=== PATIENT | female | born 1950 | race Asian ===

== ENCOUNTER 2016-08-01 21:14 | Inpatient (IN) | payer MEDICAID, OTHER ==
[~2016-08-01] VITALS: Ht 154.9 cm; Wt 40.2 kg
[~2016-08-01 21:14] MED LIST: ETHA400 PO; ISON100 PO; PYRA500T13 PO; RIFA150 PO
[2016-08-01] MEDS ORDERED: SIMV-260 PO (21:23)
[2016-08-01] MEDS ORDERED: HYDR25TA PO (21:23)
[2016-08-01] MEDS ORDERED: LISI-662 PO (21:23)
[2016-08-01] MEDS ORDERED: ASPI-556 PO (21:23)
[2016-08-01] MEDS ORDERED: CALC-746 PO (21:23)
[2016-08-01 21:51] LABS: BASOPHILS % (AUTO) 0.4 % (0.0-2.0); EOSINOPHILS % (AUTO) 0.5 % (1.0-6.0); LYMPHOCYTES % (AUTO) 30.4 % (22.0-44.0); MEAN CORPUSCULAR HEMOGLOBIN 30.7 pg (26.0-34.0); MEAN CORPUSCULAR HGB CONC 32.5 G/dL (31.0-37.0); MEAN CORPUSCULAR VOLUME 95 fL (80-100); MONOCYTES # (AUTO) 0.6 K/uL (0.1-1.0); MONOCYTES % (AUTO) 8.5 % (2.0-9.0); NEUTROPHILS % (AUTO) 60.2 % (40.0-70.0); PLATELET COUNT (AUTO) 227 K/uL (150-450); RED BLOOD CELL COUNT(AUTO) 3.91 MIL/uL (4.00-5.20); RED CELL DISTRIBUTION WIDTH 12.8 % (11.5-14.5); WHITE BLOOD COUNT (AUTO) 6.7 K/uL (4.5-11.0)
[2016-08-01] MEDS ORDERED: HYDROmorphone 2 MG/ML SYRINGE IVP ONE (22:15)
[2016-08-01] MEDS ORDERED: SODIUM CHLORIDE 0.9% 1,000 ML IV ONE ×2 (22:15→23:30)
[2016-08-01] MEDS ORDERED: ONDANSETRON HCL 4 MG/2 ML VIAL IVP ONE ×2 (22:15→23:00)
[2016-08-01 22:31] LABS: BILIRUBIN,TOTAL 0.5 mg/dL (0.1-1.0); CALCIUM, TOTAL 8.4 mg/dL (8.8-10.5); CREATININE 0.96 mg/dL (0.60-1.30); POTASSIUM 3.5 mmol/L (3.5-5.1); TOTAL PROTEIN, SERUM 7.5 g/dL (6.4-8.2)
[2016-08-01 23:26] LABS: THYROID STIMULATING HORMONE 0.93 uIU/mL (0.36-3.74)
[2016-08-01] MEDS ORDERED: 0.9% SODIUM CHLORIDE 10 ML SYRINGE IVP PRN (23:30)
[2016-08-01] MEDS ORDERED: ONDANSETRON HCL 4 MG/2 ML VIAL IVP PRN (23:30)
[2016-08-01 23:47] VITALS: BP 139/73
[2016-08-02 04:24] VITALS: BP 145/87
[2016-08-02] MEDS: ACETAMINOPHEN 325 MG TABLET PO PRN ×2 (04:34→04:52)
[2016-08-02 06:30] LABS: BASOPHILS % (AUTO) 0.2 % (0.0-2.0); EOSINOPHILS % (AUTO) 0.1 % (1.0-6.0); HEMATOCRIT 29.9 % (36-46); HEMOGLOBIN 9.9 g/dL (12.0-16.0); LYMPHOCYTES # (AUTO) 0.7 K/uL (1.0-4.8); LYMPHOCYTES % (AUTO) 11.7 % (22.0-44.0); MEAN CORPUSCULAR HEMOGLOBIN 31.5 pg (26.0-34.0); MEAN CORPUSCULAR HGB CONC 32.9 G/dL (31.0-37.0); MEAN CORPUSCULAR VOLUME 96 fL (80-100); MONOCYTES # (AUTO) 0.1 K/uL (0.1-1.0); MONOCYTES % (AUTO) 2.6 % (2.0-9.0); NEUTROPHILS # (AUTO) 4.9 K/uL (1.8-7.7); PLATELET COUNT (AUTO) 152 K/uL (150-450); RED BLOOD CELL COUNT(AUTO) 3.13 MIL/uL (4.00-5.20); RED CELL DISTRIBUTION WIDTH 12.6 % (11.5-14.5); WHITE BLOOD COUNT (AUTO) 5.7 K/uL (4.5-11.0)
[2016-08-02 06:45] LABS: NEUTROPHILS % (AUTO) 85.4 % (40.0-70.0)
[2016-08-02] MEDS ORDERED: OxyCODONE HCL/ACETAMINOPHEN 5-325 MG TABLET PO PRN (06:45)
[2016-08-02] MEDS ORDERED: HYDROCODONE/ACETAMINOPHEN 5-325 MG TABLET PO PRN ×2 (06:45→11:00)
[2016-08-02] MEDS ORDERED: ONDANSETRON HCL 4 MG/2 ML VIAL IVP PRN ×2 (06:45→11:00)
[2016-08-02] MEDS ORDERED: MORPHINE SULFATE 2 MG/ML SYRINGE IVP PRN (06:45)
[2016-08-02] MEDS ORDERED: BARIUM SULFATE 0.1% SUSPENSION 450 ML BOTTLE ONE (06:53)
[2016-08-02 06:54] LABS: ALANINE AMINOTRANSFERASE 21 U/L (12-78); ALBUMIN 3.5 g/dL (3.4-5.0); ANION GAP 10 mmol/L (8-16); ASPARTATE AMINOTRANSFERASE 21 U/L (15-37); BILIRUBIN,TOTAL 0.7 mg/dL (0.1-1.0); CALCIUM, TOTAL 7.2 mg/dL (8.8-10.5); CARBON DIOXIDE 24 mmol/L (22-29); CHLORIDE 89 mmol/L (98-107); CREATININE 0.83 mg/dL (0.60-1.30); GLOMERULAR FILTR. RATE CALC > 60 mL/min (>60); POTASSIUM 3.5 mmol/L (3.5-5.1); TOTAL PROTEIN, SERUM 6.8 g/dL (6.4-8.2); UREA NITROGEN, BLOOD 8 mg/dL (7-18)
[2016-08-02] MEDS: SODIUM CHLORIDE 0.9% 1,000 ML IV SCH ×2 (06:56→20:31)
[2016-08-02 07:09] LABS: SODIUM SERUM 123 mmol/L (136-145)
[2016-08-02 07:35] VITALS: BP 128/66
[2016-08-02] MEDS: LISINOPRIL 20 MG TABLET PO SCH (07:55)
[2016-08-02] MEDS: SIMVASTATIN 20 MG TABLET PO SCH (07:55)
[2016-08-02 08:29] LABS: ADD UA MICROSCOPIC YES; APPEARANCE,URINE CLEAR (CLEAR); GLUCOSE, URINE (UA) 100 mg/dL (NEGATIVE); KETONES,URINE 15 mg/dL (NEGATIVE); LEUKOCYTE ESTERASE ,URINE NEGATIVE (NEGATIVE); OCCULT BLOOD,URINE NEGATIVE (NEGATIVE); PH,URINE 7.5 (5.0-8.0); PROTEIN,URINE NEGATIVE (NEGATIVE)
[2016-08-02 08:34] LABS: RBC,URINE 0-2 /HPF (0-2); SQUAMOUS EPITHELIAL CELL,UR Few /LPF (None Seen); WBC,URINE 0-2 /HPF (0-5)
[2016-08-02] MEDS ORDERED: ALBUTEROL SULFATE 2.5 MG/0.5 ML NEB SOLUTION NEB PRN (11:00)
[2016-08-02] MEDS ORDERED: MAGNESIUM HYDROXIDE SUSPENSION 30 ML UDCUP PO PRN (11:00)
[2016-08-02] MEDS ORDERED: MORPHINE SULFATE 4 MG/ML SYRINGE IVP PRN (11:00)
[2016-08-02] MEDS ORDERED: ACETAMINOPHEN 325 MG TABLET PO PRN (11:00)
[2016-08-02] MEDS ORDERED: IPRATROPIUM BROMIDE 0.5 MG/2.5 ML NEB SOLUTION NEB PRN (11:00)
[2016-08-02] MEDS ORDERED: ZOLPIDEM TARTRATE 5 MG TABLET PO PRN (11:00)
[2016-08-02] MEDS ORDERED: BISACODYL 10 MG RECTAL RECTAL SUPPOSITORY PR PRN (11:00)
[2016-08-02 11:10] VITALS: BP 120/65
[2016-08-02 15:56] VITALS: BP 120/61
[2016-08-02 20:05] VITALS: BP 116/72
[2016-08-02] MEDS: DOCUSATE SODIUM 100 MG CAPSULE PO SCH (20:32)
[2016-08-02 23:41] VITALS: BP 110/53
[2016-08-03] MEDS: SODIUM CHLORIDE 0.9% 1,000 ML IV SCH (05:21)
[2016-08-03 05:22] VITALS: BP 124/63
[2016-08-03 07:12] VITALS: BP 140/78
[2016-08-03] MEDS: DOCUSATE SODIUM 100 MG CAPSULE PO SCH (07:56)
[2016-08-03] MEDS: LISINOPRIL 20 MG TABLET PO SCH (07:56)
[2016-08-03] MEDS: SIMVASTATIN 20 MG TABLET PO SCH (07:56)
[2016-08-03] MEDS ORDERED: GADOBUTROL 1 MMOL/ML 10 ML VIAL IVP ONE (08:34)
[2016-08-03] MEDS ORDERED: PANTOPRAZOLE SODIUM 40 MG/VIAL IVP SCH (09:00)
[2016-08-03 09:29] LABS: BASOPHILS % (AUTO) 0.4 % (0.0-2.0); EOSINOPHILS % (AUTO) 0.6 % (1.0-6.0); HEMATOCRIT 36.8 % (36-46); HEMOGLOBIN 11.9 g/dL (12.0-16.0); LYMPHOCYTES # (AUTO) 1.6 K/uL (1.0-4.8); LYMPHOCYTES % (AUTO) 29.8 % (22.0-44.0); MEAN CORPUSCULAR HEMOGLOBIN 30.4 pg (26.0-34.0); MEAN CORPUSCULAR HGB CONC 32.5 G/dL (31.0-37.0); MEAN CORPUSCULAR VOLUME 94 fL (80-100); MONOCYTES # (AUTO) 0.6 K/uL (0.1-1.0); MONOCYTES % (AUTO) 10.7 % (2.0-9.0); NEUTROPHILS # (AUTO) 3.2 K/uL (1.8-7.7); NEUTROPHILS % (AUTO) 58.5 % (40.0-70.0); PLATELET COUNT (AUTO) 185 K/uL (150-450); RED BLOOD CELL COUNT(AUTO) 3.92 MIL/uL (4.00-5.20); RED CELL DISTRIBUTION WIDTH 13.3 % (11.5-14.5); WHITE BLOOD COUNT (AUTO) 5.4 K/uL (4.5-11.0)
[2016-08-03 10:09] LABS: ANION GAP 11 mmol/L (8-16); CALCIUM, TOTAL 8.1 mg/dL (8.8-10.5); CARBON DIOXIDE 23 mmol/L (22-29); CHLORIDE 104 mmol/L (98-107); CREATININE 0.91 mg/dL (0.60-1.30); GLOMERULAR FILTR. RATE CALC > 60 mL/min (>60); POTASSIUM 3.4 mmol/L (3.5-5.1); SODIUM SERUM 138 mmol/L (136-145); UREA NITROGEN, BLOOD 9 mg/dL (7-18)
[2016-08-03 10:15] LABS: ALANINE AMINOTRANSFERASE 28 U/L (12-78); ALBUMIN 4.1 g/dL (3.4-5.0); ASPARTATE AMINOTRANSFERASE 31 U/L (15-37); BILIRUBIN,TOTAL 0.6 mg/dL (0.1-1.0)
[2016-08-03 11:10] VITALS: BP 130/73
[2016-08-03] MEDS ORDERED: ONDA4 PO (16:17)
== END 2016-08-03 17:45 | disposition home or self-care (01) | DRG 422 ==
LOC: EMS 21:14 → 6N 23:26
PROVIDERS: ADMIT Hospitalist; ATTEND Hospitalist
DX: E87.1 Hypo-osmolality and hyponatremia (principal); E86.0 Dehydration; I10 Essential (primary) hypertension; R10.13 Epigastric pain; E78.00 Pure hypercholesterolemia, unspecified; E78.5 Hyperlipidemia, unspecified; D64.9 Anemia, unspecified; Z79.82 Long term (current) use of aspirin; Z86.11 Personal history of tuberculosis; Z79.899 Other long term (current) drug therapy
CPT/HCPCS: 74176; 74183; 76700; 83930; 83935; 84300; 84439; 84443; 93005; 96361; 96374; 96375; 96376; 99285; A9585; C9113; J1170; J2405; J7030

== ENCOUNTER 2017-04-02 06:21 | Day surgery (SDC) | payer OTHER ==
[~2017-04-02] VITALS: Ht 157.5 cm; Wt 37.7 kg
[~2017-04-02 06:21] MED LIST changes: +ALEN70TA48 PO; +ASPI-556 PO; +CALC-789 PO; -ETHA400 PO; +FLUT16H NASAL; -ISON100 PO; +LISI-662 PO; +MOME13HF IH; +MONT10TA21 PO; +ONDA4 PO; -PYRA500T13 PO; -RIFA150 PO; +SIMV-259 PO; +SPIR25 PO
[2017-04-02] MEDS ORDERED: LIDOCAINE HCL 4% 50 ML SOLUTION TP ONE (06:22)
[2017-04-02] MEDS ORDERED: BENZOCAINE 20% 50 MCG/SPRAY 57 GM TP ONE (06:22)
[2017-04-02] MEDS ORDERED: LIDOCAINE HCL 2% 5 ML JELLY TP ONE (06:22)
[2017-04-02] MEDS ORDERED: SODIUM CHLORIDE 0.9% 1,000 ML IV ONE ×2 (06:30→06:33)
[2017-04-02] MEDS ORDERED: MIDAZOLAM HCL 2 MG/2 ML VIAL ONE (07:48)
[2017-04-02] MEDS ORDERED: FentaNYL CITRATE-PF 100 MCG/2 ML VIAL ONE (07:48)
[2017-04-02] MEDS ORDERED: MethylPREDNISolone SOD SUCC 125 MG/2 ML VIAL IVP ONE (09:15)
[2017-04-02] MEDS ORDERED: MethylPREDNISolone SOD SUCC 125 MG/2 ML VIAL ONE (09:19)
[2017-04-02] MEDS ORDERED: PROMETHAZINE HCL 6.25 MG/5 ML SYRUP ORAL.SYG PO STA (09:20)
[2017-04-02] MEDS ORDERED: OXYGEN THERAPY IH SCH (20:00)
== END 2017-04-02 10:20 | disposition home or self-care (01) ==
LOC: SURGERY 06:21
PROVIDERS: ATTEND Internal Medicine Critical Care Medicine
DX: J38.4 Edema of larynx (principal); B37.0 Candidal stomatitis; I10 Essential (primary) hypertension; J84.111 Idiopathic interstitial pneumonia, not otherwise specified; K21.9 Gastro-esophageal reflux disease without esophagitis; M81.0 Age-related osteoporosis without current pathological fracture; E78.00 Pure hypercholesterolemia, unspecified; Z86.11 Personal history of tuberculosis; Z98.890 Other specified postprocedural states; Z72.89 Other problems related to lifestyle; Z79.82 Long term (current) use of aspirin; Z79.899 Other long term (current) drug therapy
CPT/HCPCS: 31623; 31624; 71045; 87015; 87070; 87147; 87205; 87220; 88108; 88312; 94640; J2250; J2930; J3010; J7030

== ENCOUNTER 2017-12-30 23:24 | Emergency (ER) | payer OTHER ==
[~2017-12-30] VITALS: Ht 154.9 cm; Wt 38.6 kg
[2017-12-30] MEDS ORDERED: FAMO20TA8 PO (23:39)
[2017-12-30] MEDS ORDERED: ALBU8.5H8 IH (23:39)
[2017-12-30] MEDS ORDERED: DENO60DI SQ (23:39)
[2017-12-31 03:30] VITALS: BP 110/69
== END 2017-12-31 03:55 | disposition home or self-care (01) ==
LOC: EMS 23:25
DX: J47.9 Bronchiectasis, uncomplicated (principal); E78.00 Pure hypercholesterolemia, unspecified; I10 Essential (primary) hypertension; J98.4 Other disorders of lung; Z79.82 Long term (current) use of aspirin; Z79.899 Other long term (current) drug therapy
CPT/HCPCS: 99284

== ENCOUNTER 2018-04-06 06:40 | Day surgery (SDC) | payer OTHER ==
[~2018-04-06] VITALS: Ht 154.9 cm; Wt 37.3 kg
[~2018-04-06 06:40] MED LIST changes: +ALBU8.5H8 IH; -ALEN70TA48 PO; +DENO60DI SQ; +LEVO500 PO; +OMEP20 PO; -ONDA4 PO; +SODIUM CHLORIDE 0.9% 1,000 ML IV ONE; +VITAD1000 PO
[2018-04-06] MEDS ORDERED: LIDOCAINE 2% 5 ML JELLY TP ONE (06:41)
[2018-04-06] MEDS ORDERED: LIDOCAINE 4% 50 ML SOLUTION TP ONE (06:41)
[2018-04-06] MEDS ORDERED: ALBUTEROL SULFATE 2.5 MG/0.5 ML NEB SOLUTION NEB ONE (06:41)
[2018-04-06] MEDS ORDERED: BENZOCAINE 20% 50 MCG/SPRAY 57 GM TP ONE (06:41)
[2018-04-06] MEDS ORDERED: SODIUM CHLORIDE 0.9% 1,000 ML IV ONE (07:00)
[2018-04-06] MEDS ORDERED: MIDAZOLAM HCL 2 MG/2 ML VIAL ONE (07:44)
[2018-04-06] MEDS ORDERED: FentaNYL CITRATE-PF 100 MCG/2 ML VIAL ONE (07:45)
[2018-04-06] MEDS ORDERED: MethylPREDNISolone SOD SUCC 125 MG/2 ML VIAL IVP ONE (09:00)
[2018-04-06] MEDS ORDERED: MethylPREDNISolone SOD SUCC 125 MG/2 ML VIAL ONE (09:26)
[2018-04-06] MEDS ORDERED: OXYGEN THERAPY IH SCH (20:00)
== END 2018-04-06 11:10 | disposition home or self-care (01) ==
LOC: SURGERY 06:40
PROVIDERS: ATTEND Internal Medicine Critical Care Medicine
DX: J38.4 Edema of larynx (principal); B37.0 Candidal stomatitis; J98.09 Other diseases of bronchus, not elsewhere classified; J98.8 Other specified respiratory disorders; J47.9 Bronchiectasis, uncomplicated; F10.21 Alcohol dependence, in remission; I10 Essential (primary) hypertension; E78.00 Pure hypercholesterolemia, unspecified; K21.9 Gastro-esophageal reflux disease without esophagitis; M81.0 Age-related osteoporosis without current pathological fracture; I70.0 Atherosclerosis of aorta; Z87.19 Personal history of other diseases of the digestive system; Z79.82 Long term (current) use of aspirin; Z79.2 Long term (current) use of antibiotics; Z79.01 Long term (current) use of anticoagulants; Z87.01 Personal history of pneumonia (recurrent); Z87.09 Personal history of other diseases of the respiratory system; Z86.11 Personal history of tuberculosis; Z98.890 Other specified postprocedural states; Z79.899 Other long term (current) drug therapy
CPT/HCPCS: 31623; 31624; 71045; 87015; 87070; 87205; 87206; 87220; 88108; 88312; 93005; J2250; J2930; J3010; J7030

== ENCOUNTER → 2018-05-27 | Outpatient (CLI) | payer OTHER ==
[~2018-05-27] MED LIST changes: -SODIUM CHLORIDE 0.9% 1,000 ML IV ONE
== END | disposition home or self-care (01) ==
LOC: RADMN 08:26
PROVIDERS: ATTEND Hospitalist
DX: Q61.00 Congenital renal cyst, unspecified (principal)
CPT/HCPCS: 72195; 74181

== ENCOUNTER 2019-02-03 06:10 | Day surgery (SDC) | payer OTHER ==
[~2019-02-03] VITALS: Ht 154.9 cm; Wt 37.3 kg
[~2019-02-03 06:10] MED LIST changes: +CHOL100018 PO; +SODIUM CHLORIDE 0.9% 1,000 ML IV ONE; -VITAD1000 PO
[2019-02-03] MEDS ORDERED: LIDOCAINE 2% 30 ML JELLY TP ONE (06:11)
[2019-02-03] MEDS ORDERED: ALBUTEROL SULFATE 2.5 MG/0.5 ML NEB SOLUTION NEB ONE (06:11)
[2019-02-03] MEDS ORDERED: LIDOCAINE 4% 50 ML SOLUTION TP ONE (06:11)
[2019-02-03] MEDS ORDERED: BENZOCAINE 20% 50 MCG/SPRAY 57 GM TP ONE (06:11)
[2019-02-03] MEDS ORDERED: SODIUM CHLORIDE 0.9% 1,000 ML IV ONE (06:30)
[2019-02-03] MEDS ORDERED: CYAN50005 PO (07:19)
[2019-02-03] MEDS ORDERED: LISI-661 PO (07:19)
[2019-02-03] MEDS ORDERED: CALC-1202 PO (07:19)
[2019-02-03] MEDS ORDERED: AZIT250T9 PO (07:19)
[2019-02-03] MEDS ORDERED: NACL1 PO (07:19)
[2019-02-03] MEDS ORDERED: SIMV-260 PO (07:19)
[2019-02-03] MEDS ORDERED: FERR-89 PO (07:19)
[2019-02-03] MEDS ORDERED: FAMO20 PO (07:19)
[2019-02-03] MEDS ORDERED: ETHA400T8 PO (07:19)
[2019-02-03] MEDS ORDERED: RIFA300 PO (07:19)
[2019-02-03] MEDS ORDERED: FOLI0.4T2 PO (07:19)
[2019-02-03] MEDS ORDERED: MIDAZOLAM HCL 2 MG/2 ML VIAL ONE (07:24)
[2019-02-03] MEDS ORDERED: FentaNYL CITRATE-PF 100 MCG/2 ML VIAL ONE (07:25)
[2019-02-03] MEDS ORDERED: MethylPREDNISolone SOD SUCC 125 MG/2 ML VIAL IVP ONE (08:30)
[2019-02-03] MEDS ORDERED: ONDANSETRON HCL 4 MG/2 ML VIAL ONE ×2 (08:51→08:57)
[2019-02-03] MEDS ORDERED: ONDANSETRON HCL 4 MG/2 ML VIAL IVP ONE (09:15)
[2019-02-03] MEDS ORDERED: OXYGEN THERAPY IH SCH (20:00)
== END 2019-02-03 09:50 | disposition home or self-care (01) ==
LOC: SURGERY 06:10
PROVIDERS: ATTEND Internal Medicine Critical Care Medicine
DX: R05 Cough (principal); J38.4 Edema of larynx; B37.0 Candidal stomatitis; J98.8 Other specified respiratory disorders; J47.9 Bronchiectasis, uncomplicated; K21.9 Gastro-esophageal reflux disease without esophagitis; I10 Essential (primary) hypertension; M81.0 Age-related osteoporosis without current pathological fracture; Z87.01 Personal history of pneumonia (recurrent); Z86.11 Personal history of tuberculosis; Z72.89 Other problems related to lifestyle; Z79.899 Other long term (current) drug therapy; Z98.890 Other specified postprocedural states
CPT/HCPCS: 31623; 31624; 71045; 87015; 87070; 87101; 87205; 87206; 87220; 88108; 88184; 88185; 88312; J2250; J2405; J2930; J3010; J7030

== ENCOUNTER 2020-12-06 06:13 | Day surgery (SDC) | payer OTHER ==
[2020-12-04 10:56] LABS: COVID AG,FIA SOURCE NASOPHARYNGEAL
[~2020-12-06] VITALS: Ht 154.9 cm; Wt 36.4 kg
[~2020-12-06 06:13] MED LIST changes: +AZIT-84 PO; +CALC-1219 PO; -CALC-789 PO; -CHOL100018 PO; +CYAN50005 PO; +ETHA400T33 PO; +FAMO20 PO; +FERR-89 PO; +FOLI0.4T14 PO; -LEVO500 PO; -LISI-662 PO; +LISI-893 PO; +MONT-35 PO; -MONT10TA21 PO; +NACL1 PO; -OMEP20 PO; +RIFA300 PO; -SIMV-259 PO; +SIMV-260 PO; -SODIUM CHLORIDE 0.9% 1,000 ML IV ONE; +SPIR-37 PO; -SPIR25 PO
[2020-12-06] MEDS ORDERED: BENZOCAINE 20% 50 MCG/SPRAY 57 GM TP ONE (06:14)
[2020-12-06] MEDS ORDERED: LIDOCAINE 4% 50 ML SOLUTION TP ONE (06:14)
[2020-12-06] MEDS ORDERED: LIDOCAINE 2% 30 ML JELLY TP ONE (06:14)
[2020-12-06] MEDS ORDERED: SODIUM CHLORIDE 0.9% 1,000 ML IV ONE (06:30)
[2020-12-06] MEDS ORDERED: SODIUM CHLORIDE 0.9% 1,000 ML ONE (06:37)
[2020-12-06] MEDS ORDERED: FentaNYL CITRATE PF 100 MCG/2 ML VIAL ONE (07:48)
[2020-12-06] MEDS ORDERED: MIDAZOLAM HCL 5 MG/ML VIAL ONE (07:49)
[2020-12-06] MEDS ORDERED: MethylPREDNISolone SOD SUCC 125 MG/2 ML VIAL IVP ONE (09:00)
[2020-12-06] MEDS ORDERED: MethylPREDNISolone SOD SUCC 125 MG/2 ML VIAL ONE (09:24)
[2020-12-06] MEDS ORDERED: OXYGEN THERAPY IH SCH (20:00)
== END 2020-12-06 11:15 | disposition home or self-care (01) ==
LOC: SURGERY 06:13
PROVIDERS: ATTEND Internal Medicine Critical Care Medicine
DX: J38.4 Edema of larynx (principal); B37.0 Candidal stomatitis; Z98.890 Other specified postprocedural states; I10 Essential (primary) hypertension; E78.00 Pure hypercholesterolemia, unspecified; J44.9 Chronic obstructive pulmonary disease, unspecified; M81.8 Other osteoporosis without current pathological fracture; Z79.899 Other long term (current) drug therapy
CPT/HCPCS: 31623; 31624; 71045; 87015; 87070; 87101; 87205; 87206; 87220; 87426; 88108; 88184; 88185; 88312; C9803; J2250; J2930; J3010; J7030; Z7610

== ENCOUNTER 2021-05-05 09:30 | Emergency (ER) | payer OTHER ==
[~2021-05-05] VITALS: Ht 154.9 cm; Wt 36.4 kg
[2021-05-05 11:30] VITALS: BP 134/76
[2021-05-05] MEDS ORDERED: DIPH25CA85 PO (12:10)
== END 2021-05-05 12:34 | disposition home or self-care (01) ==
LOC: EMS 09:30
DX: T78.40XA Allergy, unspecified, initial encounter (principal); K04.7 Periapical abscess without sinus; I10 Essential (primary) hypertension; J44.9 Chronic obstructive pulmonary disease, unspecified; E78.00 Pure hypercholesterolemia, unspecified; Z79.899 Other long term (current) drug therapy; X58.XXXA Exposure to other specified factors, initial encounter
CPT/HCPCS: 99281; Z7502

== ENCOUNTER 2021-05-21 12:50 | Emergency (ER) | payer OTHER ==
[~2021-05-21] VITALS: Ht 154.9 cm; Wt 38.6 kg
[~2021-05-21 12:50] MED LIST changes: -AZIT-84 PO; +DIPH25CA85 PO; -ETHA400T33 PO; -NACL1 PO; -RIFA300 PO
[2021-05-21 15:39] VITALS: BP 130/84
== END 2021-05-21 16:21 | disposition home or self-care (01) ==
LOC: EMS 12:55
DX: J44.9 Chronic obstructive pulmonary disease, unspecified (principal); J40 Bronchitis, not specified as acute or chronic; K21.9 Gastro-esophageal reflux disease without esophagitis; E78.00 Pure hypercholesterolemia, unspecified; I10 Essential (primary) hypertension; Z79.899 Other long term (current) drug therapy; Z79.82 Long term (current) use of aspirin
CPT/HCPCS: 71046; 99283

== ENCOUNTER 2021-10-17 06:32 | Day surgery (SDC) | payer OTHER ==
[~2021-10-17] VITALS: Ht 152.4 cm; Wt 36.8 kg
[~2021-10-17 06:32] MED LIST changes: -FERR-89 PO; +FERR325T27 PO; +SODIUM CHLORIDE 0.9% 1,000 ML IV ONE
[2021-10-17] MEDS ORDERED: ALBUTEROL SULFATE 2.5 MG/0.5 ML NEB SOLUTION NEB ONE (06:33)
[2021-10-17] MEDS ORDERED: LIDOCAINE 2% 11 ML JELLY TP ONE (06:33)
[2021-10-17] MEDS ORDERED: LIDOCAINE 4% 50 ML SOLUTION TP ONE (06:33)
[2021-10-17] MEDS ORDERED: BENZOCAINE 20% 50 MCG/SPRAY 57 GM TP ONE (06:33)
[2021-10-17 06:50] LABS: COVID AG,FIA SOURCE NASOPHARYNGEAL
[2021-10-17] MEDS ORDERED: SODIUM CHLORIDE 0.9% 1,000 ML ONE (06:52)
[2021-10-17] MEDS ORDERED: SODIUM CHLORIDE 0.9% 10 ML ONE (07:46)
[2021-10-17] MEDS ORDERED: MIDAZOLAM HCL 5 MG/ML VIAL ONE (08:20)
[2021-10-17] MEDS ORDERED: FentaNYL CITRATE PF 100 MCG/2 ML VIAL ONE (08:20)
[2021-10-17] MEDS ORDERED: MethylPREDNISolone SOD SUCC 125 MG/2 ML VIAL IVP ONE (09:45)
[2021-10-17] MEDS ORDERED: GuaiFENesin/CODEINE [SUGAR FREE] 200-20MG/10 ML SYRUP UDCUP PO ONE (10:15)
[2021-10-17] MEDS ORDERED: OXYGEN THERAPY IH SCH (20:00)
== END 2021-10-17 11:26 | disposition home or self-care (01) ==
LOC: SURGERY 06:32
PROVIDERS: ATTEND Internal Medicine Critical Care Medicine
DX: J38.4 Edema of larynx (principal); B37.0 Candidal stomatitis; J39.8 Other specified diseases of upper respiratory tract; J44.9 Chronic obstructive pulmonary disease, unspecified; Z86.11 Personal history of tuberculosis; Z79.899 Other long term (current) drug therapy; E78.00 Pure hypercholesterolemia, unspecified; Z98.890 Other specified postprocedural states; M81.8 Other osteoporosis without current pathological fracture
CPT/HCPCS: 31623; 88112; 87206; 87101; 87220; 87070; 88305; 88312; 31624; 71045; 87015; 87426; J3010; J2930; J2250; Q9967; J7030; C9803; 87077; J7613; Z7610

== ENCOUNTER 2022-08-14 06:16 | Day surgery (SDC) | payer OTHER ==
[~2022-08-14] VITALS: Ht 154.9 cm; Wt 38.6 kg
[~2022-08-14 06:16] MED LIST changes: -FLUT16H NASAL; +FLUT16SP NASAL; -MOME13HF IH; +MOME13HF11 IH; -SODIUM CHLORIDE 0.9% 1,000 ML IV ONE
[2022-08-14] MEDS ORDERED: SODIUM CHLORIDE 0.9% 1,000 ML IV ONE (07:00)
[2022-08-14] MEDS ORDERED: SODIUM CHLORIDE 0.9% 1,000 ML ONE (07:17)
[2022-08-14] MEDS ORDERED: FentaNYL CITRATE PF 100 MCG/2 ML VIAL ONE (07:37)
[2022-08-14] MEDS ORDERED: MIDAZOLAM HCL 2 MG/2 ML VIAL ONE (07:37)
[2022-08-14] MEDS ORDERED: MethylPREDNISolone SOD SUCC 125 MG/2 ML VIAL IVP ONE (09:45)
[2022-08-14] MEDS ORDERED: MethylPREDNISolone SOD SUCC 125 MG/2 ML VIAL ONE (09:53)
== END 2022-08-14 11:20 | disposition home or self-care (01) ==
LOC: SURGERY 06:16
PROVIDERS: ATTEND Internal Medicine Critical Care Medicine
DX: J38.4 Edema of larynx (principal); B37.0 Candidal stomatitis; I10 Essential (primary) hypertension; J44.9 Chronic obstructive pulmonary disease, unspecified; Z79.82 Long term (current) use of aspirin; Z79.899 Other long term (current) drug therapy
CPT/HCPCS: 31623; 88112; 87206; 87101; 87220; 87070; 87186; 31624; 94640; 71045; 87015; J3010; J2250; J2930; J7030

== ENCOUNTER 2023-06-09 09:59 | Emergency (ER) | payer OTHER ==
[~2023-06-09] VITALS: Ht 154.9 cm; Wt 38.6 kg
[2023-06-09 10:16] VITALS: TEMP 98.9
[2023-06-09 11:05] LABS: BASOPHILS % (AUTO) 0.5 % (0.0-2.0); EOSINOPHILS % (AUTO) 0.9 % (1.0-6.0); HEMOGLOBIN 9.8 g/dL (12.0-16.0); LYMPHOCYTES # (AUTO) 1.5 K/uL (1.0-4.8); LYMPHOCYTES % (AUTO) 10.5 % (22.0-44.0); MEAN CORPUSCULAR HEMOGLOBIN 29.9 pg (26.0-34.0); MEAN CORPUSCULAR HGB CONC 32.7 G/dL (31.0-37.0); MEAN CORPUSCULAR VOLUME 92 fL (80-100); MONOCYTES # (AUTO) 1.6 K/uL (0.1-1.0); MONOCYTES % (AUTO) 10.7 % (2.0-9.0); NEUTROPHILS # (AUTO) 11.4 K/uL (1.8-7.7); NEUTROPHILS % (AUTO) 77.4 % (40.0-70.0); PLATELET COUNT (AUTO) 456 K/uL (150-450); RED BLOOD CELL COUNT(AUTO) 3.28 MIL/uL (4.00-5.20); RED CELL DISTRIBUTION WIDTH 15.1 % (11.5-14.5); WHITE BLOOD COUNT (AUTO) 14.7 K/uL (4.5-11.0)
[2023-06-09] MEDS: ACETAMINOPHEN 325 MG TABLET PO ONE (11:18)
[2023-06-09 11:20] LABS: TROPONIN I-HIGH SENSITIVITY 15 ng/L (<51)
[2023-06-09 11:32] LABS: CREATININE 1.25 mg/dL (0.60-1.30); POTASSIUM 3.4 mmol/L (3.5-5.1)
[2023-06-09 11:38] LABS: ALBUMIN 2.4 g/dL (3.4-5.0); BILIRUBIN,TOTAL 0.8 mg/dL (0.1-1.0)
[2023-06-09 12:56] VITALS: BP 108/58; PULSE 79; RESP 20
== END 2023-06-09 13:19 | disposition home or self-care (01) ==
LOC: EMS 09:59
DX: R07.9 Chest pain, unspecified (principal); E78.00 Pure hypercholesterolemia, unspecified; I10 Essential (primary) hypertension; K21.9 Gastro-esophageal reflux disease without esophagitis; J44.9 Chronic obstructive pulmonary disease, unspecified
CPT/HCPCS: 71045; 80053; 82550; 83880; 84484; 85025; 93005; 99285; 36415-L1; 36415-TC

== ENCOUNTER 2023-10-29 05:04 | Emergency (ER) | payer OTHER ==
[~2023-10-29] VITALS: Ht 154.9 cm; Wt 36.4 kg
[~2023-10-29 05:04] MED LIST changes: +ALBU18HF12 IH; -ALBU8.5H8 IH; +ASPI-1444 PO; -ASPI-556 PO; +BUDE10.7 IH; -CALC-1219 PO; +CALC-1271 PO; +CARV3.1231 PO; +CHOL10002 PO; -CYAN50005 PO; -DIPH25CA85 PO; -FERR325T27 PO; -FLUT16SP NASAL; -FOLI0.4T14 PO; +LEVO-72 PO; -LISI-893 PO; -MOME13HF11 IH; +PRED-554 PO; -SIMV-260 PO; +SIMV-46 PO; -SPIR-37 PO
[2023-10-29 06:07] LABS: BASOPHILS % (AUTO) 0.5 % (0.0-2.0); EOSINOPHILS % (AUTO) 2.6 % (1.0-6.0); HEMATOCRIT 35.9 % (36-46); HEMOGLOBIN 11.6 g/dL (12.0-16.0); LYMPHOCYTES # (AUTO) 1.8 K/uL (1.0-4.8); LYMPHOCYTES % (AUTO) 19.9 % (22.0-44.0); MEAN CORPUSCULAR HEMOGLOBIN 30.5 pg (26.0-34.0); MEAN CORPUSCULAR HGB CONC 32.3 G/dL (31.0-37.0); MEAN CORPUSCULAR VOLUME 94 fL (80-100); MONOCYTES # (AUTO) 1.3 K/uL (0.1-1.0); MONOCYTES % (AUTO) 14.4 % (2.0-9.0); NEUTROPHILS # (AUTO) 5.7 K/uL (1.8-7.7); NEUTROPHILS % (AUTO) 62.6 % (40.0-70.0); PLATELET COUNT (AUTO) 275 K/uL (150-450); RED BLOOD CELL COUNT(AUTO) 3.81 MIL/uL (4.00-5.20); RED CELL DISTRIBUTION WIDTH 17.1 % (11.5-14.5); WHITE BLOOD COUNT (AUTO) 9.2 K/uL (4.5-11.0)
[2023-10-29 06:18] LABS: CALCIUM, TOTAL 8.7 mg/dL (8.8-10.5); CREATININE 1.11 mg/dL (0.60-1.30); POTASSIUM 3.1 mmol/L (3.5-5.1)
[2023-10-29] MEDS: MethylPREDNISolone SOD SUCC 125 MG/2 ML VIAL IVP ONE (07:05)
[2023-10-29] MEDS: POTASSIUM CHLORIDE 20 MEQ ER TABLET PO ONE (07:05)
[2023-10-29 07:10] LABS: TROPONIN I-HIGH SENSITIVITY 20 ng/L (<51)
[2023-10-29] MEDS: CefTRIAXone 1 GM/DEXTROSE 50 ML IV ONE (07:12)
[2023-10-29 07:31] LABS: COVID AG,FIA SOURCE NASAL SWAB
[2023-10-29 08:20] LABS: SARS-COV2 (COVID) ANTIGEN,FIA Negative (Negative)
[2023-10-29] MEDS: CARVEDILOL 3.125 MG TABLET PO ONE (08:29)
[2023-10-29 09:16] LABS: ALBUMIN 3.1 g/dL (3.4-5.0); BILIRUBIN,DIRECT 0.1 mg/dL (0.00-0.20); BILIRUBIN,TOTAL 0.4 mg/dL (0.1-1.0); PROTHROMBIN TIME 10.3 SEC (9.4-11.6); TOTAL PROTEIN, SERUM 7.9 g/dL (6.4-8.2)
[2023-10-29] MEDS ORDERED: SODIUM CHLORIDE 0.9% 100 ML ONE (09:40)
[2023-10-29] MEDS ORDERED: IOHEXOL 350 MG/ML 100 ML VIAL ONE (09:40)
[2023-10-29 10:42] VITALS: BP 153/77; PULSE 83; RESP 19; TEMP 97.9
[2023-10-29] MEDS: AZITHROMYCIN 500 MG/NS 250 ML IV ONE (11:11)
== END 2023-10-29 12:01 | disposition short-term general hospital (02) ==
LOC: EMS 05:05
DX: R04.2 Hemoptysis (principal); J44.9 Chronic obstructive pulmonary disease, unspecified; K21.9 Gastro-esophageal reflux disease without esophagitis; I10 Essential (primary) hypertension; Z20.822 Contact with and (suspected) exposure to COVID-19
CPT/HCPCS: 99285; 71250; 96365; 71045; 96375; 87426; 80048; 80076; 83880; 84484; 85025; 85610; 85730; 86850; 86900; 86901; 71275; 93005; 36415; Q9967; J0696; J2919; J7050

== ENCOUNTER 2024-01-28 06:26 | Day surgery (SDC) | payer OTHER ==
[~2024-01-28] VITALS: Ht 154.9 cm; Wt 38.6 kg
[2024-01-28] MEDS ORDERED: LIDOCAINE 2% 11 ML JELLY TP ONE (06:27)
[2024-01-28] MEDS ORDERED: BENZOCAINE 20% 50 MCG/SPRAY 57 GM TP ONE (06:27)
[2024-01-28] MEDS ORDERED: LIDOCAINE 4% 50 ML SOLUTION TP ONE (06:27)
[2024-01-28] MEDS ORDERED: ALBUTEROL SULFATE 2.5 MG/0.5 ML NEB SOLUTION NEB ONE (06:27)
[2024-01-28] MEDS ORDERED: FLUMAZENIL 0.1 MG/ML 5 ML VIAL IVP ONE (07:54)
[2024-01-28] MEDS ORDERED: DiphenhydrAMINE HCL 50 MG/ML VIAL ONE (07:54)
[2024-01-28] MEDS ORDERED: ATROPINE SULFATE 0.1 MG/ML 10 ML SYRINGE IVP ONE (07:54)
[2024-01-28] MEDS ORDERED: EPINEPHrine 1:10,000 [1 MG/10 ML] SYRINGE ONE (07:54)
[2024-01-28] MEDS ORDERED: NALOXONE HCL 0.4 MG/ML VIAL ONE (07:54)
[2024-01-28] MEDS ORDERED: SODIUM TETRADECYL SULFATE 3% 60 MG/2 ML VIAL IVP ONE (07:54)
[2024-01-28] MEDS ORDERED: MIDAZOLAM HCL 2 MG/2 ML VIAL ONE (07:55)
[2024-01-28] MEDS ORDERED: FentaNYL CITRATE PF 100 MCG/2 ML VIAL ONE (07:55)
[2024-01-28 09:15] VITALS: PULSE 110; RESP 16; O2SAT 98
[2024-01-28] MEDS: FentaNYL CITRATE PF 100 MCG/2 ML VIAL IVP ONE (09:15)
[2024-01-28] MEDS: MIDAZOLAM HCL 2 MG/2 ML VIAL IVP ONE (09:15)
[2024-01-28] MEDS: SODIUM CHLORIDE 0.9% 1,000 ML IV ONE (09:21)
[2024-01-28] MEDS ORDERED: MethylPREDNISolone SOD SUCC 125 MG/2 ML VIAL IVP ONE (09:30)
[2024-01-28] MEDS ORDERED: MethylPREDNISolone SOD SUCC 125 MG/2 ML VIAL ONE (09:40)
[2024-01-28] MEDS: MethylPREDNISolone SOD SUCC 125 MG/2 ML VIAL IVP ONE (09:42)
== END 2024-01-28 15:23 | disposition home or self-care (01) ==
LOC: SURGERY 06:26
PROVIDERS: ATTEND Internal Medicine Critical Care Medicine
DX: R05.3 Chronic cough (principal); R06.2 Wheezing; R49.0 Dysphonia; R04.2 Hemoptysis; J47.9 Bronchiectasis, uncomplicated; J38.4 Edema of larynx; B37.0 Candidal stomatitis; I10 Essential (primary) hypertension; J44.9 Chronic obstructive pulmonary disease, unspecified; E78.00 Pure hypercholesterolemia, unspecified; Z98.818 Other dental procedure status; Z98.890 Other specified postprocedural states
CPT/HCPCS: 31623; 87206; 87101; 87220; 87070; 31624; 94640; 71045; 87015; J3010; J2250; J2919; 88108; J0171; J0461; J1200; J2310; J3490; J7613; Z7610

== ENCOUNTER 2024-03-24 09:41 | Emergency (ER) | payer OTHER ==
[~2024-03-24] VITALS: Ht 152.4 cm; Wt 38.6 kg
[2024-03-24] MEDS ORDERED: FERR325T27 PO (09:48)
[2024-03-24 09:52] VITALS: TEMP 98.5
[2024-03-24 12:00] VITALS: BP 140/71; PULSE 84; RESP 16; O2SAT 98
== END 2024-03-24 12:10 | disposition home or self-care (01) ==
LOC: EMS 09:43
DX: J47.9 Bronchiectasis, uncomplicated (principal); J44.1 Chronic obstructive pulmonary disease with (acute) exacerbation; I10 Essential (primary) hypertension; K21.9 Gastro-esophageal reflux disease without esophagitis; E78.00 Pure hypercholesterolemia, unspecified; Z79.82 Long term (current) use of aspirin; Z79.899 Other long term (current) drug therapy
CPT/HCPCS: 99281; Z7502